=== PATIENT | male | born 1965 | race Caucasian/White ===

== ENCOUNTER 2017-09-20 07:18 | Outpatient (CLI) | payer BC ==
[2017-09-20 07:58] LABS: CREATININE 1.1 MG/DL (0.55-1.30); GLOMERULAR FILTRATION RATE > 60 mL/min (>60)
--- NOTE | 2017-09-20 11:38 | Diagnostic Imaging Report ---
Clinical Indication: Soft tissue mass in the right mid lower abdomen Technique: Patient given oral contrast. IV administration nonionic contrast. Venous phase spiral acquisition obtained through the abdomen and pelvis. Multiplanar reconstructions were generated. Total dose length product 565 mGycm. CTDIvol(s) 12 mGy. Dose reduction achieved using automated exposure control Comparison: None Findings: There is suggestion of slight diastasis of the right transverse abdominis aponeurosis just below the iliac crests, and small bowel loops protrude just slightly, deep to the area of diastasis. There is slight lateral displacement of the anterolateral abdominal wall muscle bellies and slight medial displacement of the right rectus abdominis muscle belly However, no bowel loops are seen to lie superficial to any of the abdominal muscular or fascial layers, so ty herniation is not evident. No other evidence of abdominal wall hernia demonstrated There is colonic diverticulosis. No evidence of diverticulitis. Contrast is seen throughout the entirety of the small bowel, and reaches the distal ascending colon. There is a moderate amount retained fecal debris. No small bowel distention or small bowel wall thickening. No free or loculated intraperitoneal air or fluid. The liver demonstrates a peripheral calcification in segment 7 in the dome. It is otherwise unremarkable. The gallbladder, bile ducts, pancreas, spleen, adrenals, kidneys are unremarkable. No retroperitoneal or mesenteric mass or adenopathy. Calcification are seen within the prostate. The included lung bases are clear. The bones demonstrate degenerative thoracolumbosacral spondylosis changes. These are fairly extensive. Impression: Evidence of slight diastasis and therefore likely slight weakness of the transverse abdominis aponeurosis, with resultant slight protrusion of small bowel deep to this. However, no yt herniation is demonstrated. Diverticulosis. No evidence of diverticulitis Hepatic calcification, presumably post inflammatory Other findings as noted, including degenerative spondylosis, prostatic calcification The CT scanner at [facility] is accredited by the [employer] and the scans are performed using protocols designed to limit radiation exposure to as low as reasonably achievable to attain images of sufficient resolution adequate for diagnostic evaluation.
== END 2017-09-20 09:18 | disposition home or self-care (01) ==
LOC: CAT 07:18
DX: R19.00 Intra-abdominal and pelvic swelling, mass and lump, unspecified site (principal); K57.90 Diverticulosis of intestine, part unspecified, without perforation or abscess without bleeding; M47.9 Spondylosis, unspecified
CPT/HCPCS: 36415; 74177; 82565; 84520; Q9967

== ENCOUNTER 2018-02-05 15:22 | Outpatient (CLI) | payer BC ==
--- NOTE | 2018-02-05 16:13 | Diagnostic Imaging Report ---
Indication: Cough Technique: One view of the chest Comparison: none Findings: Lungs and pleural spaces are clear. Heart size is normal. There are degenerative changes of both shoulders Impression: No acute process
== END 2018-02-05 17:22 | disposition home or self-care (01) ==
LOC: RAD 15:22
DX: J20.8 Acute bronchitis due to other specified organisms (principal)
CPT/HCPCS: 71045

== ENCOUNTER → 2019-06-17 | Outpatient (CLI) | payer BC ==
--- NOTE | 2019-06-17 15:13 | Diagnostic Imaging Report ---
Indication: Abdominal pain, hernia, right lower quadrant pain Technique: Spiral acquisitions obtained through the abdomen and pelvis. Patient ingested oral contrast No IV contrast utilized, per referring physician request.. Multiplanar reconstructions were generated. Total dose length product 615.92 mGycm. CTDIvol(s) 13.45 mGy. Dose reduction achieved using automated exposure control Comparison: None Findings: The appendix is normal. There is equivocal colonic diverticulosis. No evidence of diverticulitis. Contrast has traversed entire small bowel and reached the cecum. No small bowel distention. No small bowel wall thickening. No free or loculated intraperitoneal gas or fluid. There is some retained contrast in the distal esophagus. Distal esophagus, stomach, duodenum are otherwise unremarkable. When compared to prior exam, previously demonstrated right lower quadrant muscular diastatic changes are less evident Lack of IV contrast limits assessment of the solid organs. The liver demonstrates a peripheral calcification in posterior segment 7. The gallbladder, bile ducts, pancreas, spleen, adrenals, kidneys are all unremarkable. No retroperitoneal or mesenteric mass or adenopathy. No pelvic mass or adenopathy. The prostate contains calcifications., The included lung bases demonstrate minimal interstitial septal thickening and some mild groundglass opacity. The heart is mildly enlarged. The bones demonstrate fairly extensive degenerative spondylosis change. Impression: No acute process Colonic diverticulosis. No evidence of diverticulitis Peripheral right lobe liver calcification Cardiomegaly Mild interstitial prominence and very slight groundglass opacity at the lung bases may indicate a slight degree of pulmonary edema But no findings noted, including degenerative spondylosis, prostatic calcifications, peripheral right lobe liver calcification The CT scanner at [facility] is accredited by the [employer] and the scans are performed using protocols designed to limit radiation exposure to as low as reasonably achievable to attain images of sufficient resolution adequate for diagnostic evaluation.
== END | disposition home or self-care (01) ==
LOC: CAT 09:16
DX: R10.31 Right lower quadrant pain (principal); K57.90 Diverticulosis of intestine, part unspecified, without perforation or abscess without bleeding; I51.7 Cardiomegaly; M47.9 Spondylosis, unspecified
CPT/HCPCS: 74176

== ENCOUNTER 2019-08-21 09:13 | Outpatient (CLI) | payer BC | END 2019-08-21 11:13 | disposition home or self-care (01) | LOC: MRI 09:13 | DX: R10.32 Left lower quadrant pain (principal); R06.02 Shortness of breath ==

== ENCOUNTER 2019-09-12 14:56 | Outpatient (CLI) | payer BC ==
--- NOTE | 2019-09-12 17:07 | Diagnostic Imaging Report ---
Indication: Shortness of breath Technique: XRAY Chest 2v Comparison: 02/05/2018 Findings: Apparent mild cardiomegaly and residual fullness noted on frontal view may be exaggerated due to low lung volumes. No definite focal airspace consolidation is identified. No pleural effusion or pneumothorax. There are degenerative changes of the spine and shoulders. No acute osseous abnormality. Impression: Initial prominence/apparent peribronchial thickening on frontal view may be exaggerated due to low volumes. Possibility of mild congestive changes or small airway disease can also be considered in the appropriate clinical setting. No definite focal airspace consolidation, pleural effusion or pneumothorax.
== END 2019-09-12 16:56 | disposition home or self-care (01) ==
LOC: RAD 14:56
DX: I42.7 Cardiomyopathy due to drug and external agent (principal); R00.0 Tachycardia, unspecified; R06.02 Shortness of breath; J81.1 Chronic pulmonary edema
CPT/HCPCS: 71046